=== PATIENT | male | born 1995 | race Caucasian/White ===

== ENCOUNTER 2019-03-25 21:36 | Emergency (ER) | payer BC, OTHER ==
[~2019-03-25] VITALS: Ht 188 cm; Wt 60.8 kg
[2019-03-25 21:50] VITALS: BP_SYST 127
--- NOTE | 2019-03-25 22:00 | NUR ---
2200 - Patient to ER bed 3 to gown for evaluation. Side rails up.
--- NOTE | 2019-03-25 22:47 | NUR ---
2247 - Attempted to assess pt. Pt not found in room. Pt not found in bathrooms or ED lobby. pt LWBS
== END 2019-03-25 22:47 | disposition left against medical advice (07) ==
LOC: SED 21:36
DX: R21 Rash and other nonspecific skin eruption (principal); Z53.21 Procedure and treatment not carried out due to patient leaving prior to being seen by health care provider